=== PATIENT | male | born 1985 | race Caucasian/White ===

== ENCOUNTER → 2017-07-31 | Outpatient (CLI) | payer BC | LOC: COL.RAD 08:11 | DX: K21.9 Gastro-esophageal reflux disease without esophagitis (principal); N30.10 Interstitial cystitis (chronic) without hematuria; R07.9 Chest pain, unspecified ==

== ENCOUNTER 2018-02-13 09:10 | Outpatient (CLI) | payer BC ==
[~2018-02-13] VITALS: Ht 182.9 cm; Wt 80.2 kg
[2018-02-13] VITALS (8 sets, daily range): BP systolic 106–144; BP diastolic 68–84; PULSE 53–74; TEMP 97.1
[2018-02-13 11:06] LABS: GLUCOSE,CSF 55 mg/dL (40-70); TOTAL PROTEIN,CSF 34 mg/dL (15-45)
[2018-02-13 11:31] LABS: CSF COLOR COLORLESS
[2018-02-13 11:32] LABS: CSF APPEARANCE CLEAR; CSF MONONUCLEAR 100 % (70-100); CSF POLYMORPHONUCLEAR 0 % (0-6); CSF RBC 0 /mm3 (0-0)
[2018-02-15 14:56] LABS: ALBUMIN CSF 16.3 mg/dL (<=27.0); CSF IGG/ALBUMIN 0.1 (<=0.21); CSF,IGG 1.7 mg/dL (<=8.1)
[2018-02-15 15:09] LABS: CSF-IGG INDEX 0.53 (<=0.85); IGG/ALBUMIN SERUM 0.19 (<=0.40)
== END 2018-02-13 15:01 | disposition home or self-care (01) ==
LOC: COL.RAD 09:10
PROVIDERS: Psychiatry & Neurology Neurology
DX: G93.2 Benign intracranial hypertension (principal); Z86.69 Personal history of other diseases of the nervous system and sense organs

== ENCOUNTER 2018-02-15 15:17 | Emergency (ER) | payer BC ==
[~2018-02-15] VITALS: Ht 182.9 cm; Wt 75.0 kg
[2018-02-15 15:25] VITALS: TEMP 98.1
[2018-02-15 16:33] LABS: BASO # 0.1 (0.0-0.2); BASO % 0.5 % (0.0-2.0); EOS # 0.2 (0.0-0.7); EOS % 1.3 % (0-4.0); GRAN # 8.5 (1.4-6.5); GRAN % 63.3 % (42.2-75.2); HEMATOCRIT 43.7 % (42.0-52.0); HEMOGLOBIN 14.8 g/dl (13.5-18.0); LYMPH # 3.6 (1.2-3.4); LYMPH % 26.9 % (20.0-51.0); MEAN CELL VOLUME 88 fl (80.0-100.0); MEAN CORPUSCULAR HEMOGLOBIN 30 pg (27.0-31.0); MEAN CORPUSCULAR HGB CONC 34 g/dl (33.0-37.0); MONO % 7.6 % (1.7-9.3); PLATELET COUNT 347 K/mm3 (130-400); RED BLOOD COUNT 4.97 M/mm3 (4.20-5.60); REDCELL DISTRIBUTION WIDTH-CV 11.3 % (11.5-14.5)
[2018-02-15 17:50] VITALS: BP 123/80; PULSE 64
== END 2018-02-15 17:50 | disposition home or self-care (01) ==
LOC: COL.ER 15:17
PROVIDERS: Family Medicine
DX: G97.1 Other reaction to spinal and lumbar puncture (principal)
CPT/HCPCS: J7120